=== PATIENT | male | born 1970 | race African-American/Black ===

== ENCOUNTER 2016-08-30 00:11 | Emergency (ER) | payer MEDICAID ==
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
[2016-08-30] MEDS ORDERED: Bacitracin pkt 1 gm Pkt TP ONE (00:56)
[2016-08-30] MEDS ORDERED: Bacitracin pkt 1 gm Pkt TP STA (00:57)
== END 2016-08-30 01:25 | disposition home or self-care (01) ==
LOC: ER 00:11
DX: S60.012A Contusion of left thumb without damage to nail, initial encounter (principal); R03.0 Elevated blood-pressure reading, without diagnosis of hypertension; Z88.1 Allergy status to other antibiotic agents; V87.8XXA Person injured in other specified noncollision transport accidents involving motor vehicle (traffic), initial encounter; Y93.89 Activity, other specified; Y92.488 Other paved roadways as the place of occurrence of the external cause; Y99.8 Other external cause status
CPT/HCPCS: 99283; 29125; Z7610; Z7502

== ENCOUNTER 2017-10-18 11:33 | Emergency (ER) | payer MEDICAID ==
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
[2017-10-18 12:27] LABS: % BASOPHILS 1.2 % (0.0-2.0); % EOSINOPHILS 3.7 % (0.0-5.0); % LYMPHOCYTES 38.9 % (20.0-50.0); % MONOCYTES 9.3 % (2.0-10.0); % NEUTROPHILS 46.9 % (40.0-80.0); BASOPHILE ABSOLUTE 0.1 Th/cumm (0-0.2); EOSINOPHILE ABSOLUTE 0.2 Th/cmm (0.1-0.4); HEMATOCRIT 30.3 % (41.0-60); HEMOGLOBIN 10.1 gm/dL (12-16); LYMPHOCYTE ABSOLUTE 2.6 Th/cmm (1.5-3.0); MEAN CELL VOLUME 78.4 fl (80-99); MEAN CORPUSCULAR HEMOGLOBIN 26.1 pg (26.0-30.0); MEAN CORPUSCULAR HGB CONC 33.3 pg (28.0-36.0); MEAN PLATELET VOLUME 7.8 fl; MONOCYTE ABSOLUTE 0.6 Th/cmm (0.3-1.0); NEUTROPHILE ABSOLUTE 3.1 Th/cmm (1.8-8.0); PLATELET COUNT 278 Th/cmm (150-400); RED BLOOD COUNT 3.86 Mil/cmm (4.30-5.70); RED CELL DISTRIBUTION WIDTH 15.7 % (11.5-20.0); WHITE BLOOD COUNT 6.6 Th/cmm (4.8-10.8)
[2017-10-18 12:39] LABS: URINE MICROSCOPIC INDICATED? YES; URINE SOURCE CLEAN C
[2017-10-18 12:44] LABS: ALB/GLOB RATIO 1.4 (1.0-1.8); ALBUMIN 3.7 gm/dL (4.2-5.5); ALKALINE PHOSPHATASE 98 U/L (34-104); BILIRUBIN,TOTAL 0.8 mg/dL (0.3-1.0); BUN - UREA NITROGEN 16 mg/dL (7-25); CALCIUM SERUM 8.9 mg/dL (8.6-10.3); CARBON DIOXIDE 24.6 mEq/L (21.0-31.0); CHLORIDE 107 mEq/L (98-107); GFR AFRICAN-AMERICAN > 60.0 ml/min (>90); GFR NON AFRICAN-AMERICAN > 60.0 ml/min; GLUCOSE 99 mg/dL (70-105); POTASSIUM SERUM 3.6 mEq/L (3.5-5.1); SGOT 16 U/L (13-39); SGPT/ALT 10 U/L (7-52); SODIUM SERUM 136 mEq/L (136-145); TOTAL PROTEIN,SERUM 6.4 gm/dL (6.0-8.3)
[2017-10-18 12:47] LABS: URINE BILIRUBIN NEGATIVE (NEGATIVE); URINE BLOOD SMALL (NEGATIVE); URINE GLUCOSE (UA) NEGATIVE (NEGATIVE); URINE KETONE NEGATIVE (NEGATIVE); URINE LEUKOCYTE ESTERASE NEGATIVE (NEGATIVE); URINE NITRATE NEGATIVE (NEGATIVE); URINE PROTEIN NEGATIVE (NEGATIVE); URINE UROBILINOGEN 0.2 E.U./dL (0.2 - 1.0)
[2017-10-18 12:49] LABS: URINE CLARITY TURBID (CLEAR); URINE COLOR YELLOW
[2017-10-18 13:04] LABS: URINE BACTERIA FEW /hpf (NONE SEEN); URINE EPITHELIAL CELLS OCCASIONAL /lpf (FEW); URINE RBC 0-2 /hpf (0-5); URINE WBC 0-2 /hpf (0-5)
--- NOTE | 2017-10-19 08:20 | Diagnostic Imaging Report ---
Bilateral testicular/scrotal ultrasound HISTORY: Pain, trauma The right testis measures 4.0 x 2.3 x 2.4 cm. No focal intratesticular lesions. Normal testicular vascular flow. Small right hydrocele. The left testis measures 4.3 x 2.8 x 2.5 cm. No focal parenchymal lesions. Normal testicular vascular flow. Small left hydrocele. The left epididymis appears normal. IMPRESSION: 1. Small bilateral hydroceles 2. No focal intratesticular abnormalities
== END 2017-10-18 14:20 | disposition home or self-care (01) ==
LOC: ER 11:33
DX: S39.94XA Unspecified injury of external genitals, initial encounter (principal); Z88.2 Allergy status to sulfonamides; Z88.1 Allergy status to other antibiotic agents; V19.9XXA Pedal cyclist (driver) (passenger) injured in unspecified traffic accident, initial encounter; Y93.89 Activity, other specified; Y92.89 Other specified places as the place of occurrence of the external cause; Y99.8 Other external cause status
CPT/HCPCS: 36415-UA; 76870-TC; 80053-TC; 81001-TC; 85025-TC

== ENCOUNTER 2017-10-20 22:57 | Emergency (ER) | payer MEDICAID ==
--- NOTE | 2017-10-20 23:49 | ED Physician Chart ---
ED Chief Complaint/HPI - Patient Information Date Seen:: 10/20/17 Time Seen:: 23:43 Chief Complaint:: Depression History of Present Illness:: 47 yo male had depression and bipolar disorder on Prozac 10mg qd, abilify 25mg qd for 8 months. Patient stated that there was no improvement. Patient ran out both medications for 2 days feeling depressed. Patient will be able to see his psychiatrist Dr. Roberson tomorrow morning. Patient had history of suicidal attempt. Currently, patient denies any suicidal ideation or attempt. Allergies:: Allergies Allergy/AdvReac Type Severity Reaction Status Date / Time chlorpromazine Allergy Verified 10/20/17 23:15 [From Thorazine] haloperidol [From Haldol] Allergy Verified 10/20/17 23:15 Sulfa (Sulfonamide Allergy Verified 10/20/17 23:15 Antibiotics) sulfamethoxazole Allergy Verified 08/30/16 00:32 [From Bactrim] trimethoprim [From Bactrim] Allergy Verified 08/30/16 00:32 Vitals:: Vital Signs - 8 hr 10/20/17 23:00 Temp 98.2 F HR 65 RR 18 BP 135/87 O2 Sat % 97 ED Review of Systems - Review of Systems General/Constitutional: No fever Skin: Skin lesions Head: No headache Eyes: No pain ENT: No earache Neck: No neck pain Cardio Vascular: No chest pain Pulmonary: No SOB GI: No nausea, No vomiting Musculoskeletal: No bone or joint pain Psychiatric: Depression, No suicidal ideation Neurological: No focal symptoms ED Past Medical History - Past Medical History Past Medical History: HTN Social History: Non Smoker, Alcohol, No Drug Use Psychiatricy History: Depression, Bipolar Family Medical History - Family Member Mother History Unknown: Yes Ethnicity: Non- ED Physical Exam - Physical Examination General/Constitutional: Awake Head: Atraumatic Eyes: PERRL Other Skin comments:: Multiple scars on left forearm Neck: No nuchal rigidity Respiratory: No Wheeze/Rhonchi/Rales Cardio Vascular: RRR, No murmur, gallop, rubs, NL S1 S2 GI: No tenderness/rebounding/guarding Extremities: normal strength in all extremities ED Assessment - Assessment General Assessment: Depression Bipolar disorder Assessment/Comments:: Prozac 10mg po Abilify 15mg po D/c home F/u psychiatrist [facility] ED Septic Shock - . Is Septic Shock (SBP<90, OR Lactate>4 mmol\L) present?: No - <6hrs of presentation: Vital Signs: Vital Signs - 8 hr 10/20/18 23:00 Temp 98.2 F HR 65 RR 18 BP 135/87 O2 Sat % 97 ED Reassessment (Disposition) - Reassessment Reassessment:: After sleeping overnight at ER uneventfully, patient was stable, ready to be discharged. Reassessment Condition:: Improved - Patient Disposition Discharge/Transfer:: Home
== END 2017-10-21 06:41 | disposition home or self-care (01) ==
LOC: ER 22:57
DX: F32.9 Major depressive disorder, single episode, unspecified (principal); I10 Essential (primary) hypertension; Z88.2 Allergy status to sulfonamides; Z88.1 Allergy status to other antibiotic agents; Z88.5 Allergy status to narcotic agent; Z88.8 Allergy status to other drugs, medicaments and biological substances
CPT/HCPCS: Z7502

== ENCOUNTER 2017-10-24 23:00 | Emergency (ER) | payer MEDICAID ==
--- NOTE | 2017-10-24 23:59 | ED Physician Chart ---
ED Chief Complaint/HPI - Patient Information Date Seen:: 10/24/17 Time Seen:: 23:13 Chief Complaint:: suicidal History of Present Illness:: This is a 47 yo male psych patient who states that he is suicidal and want to kill himself. He states that he is a psych patient and has not been taking his medications. He denies drug abuse and alcohol abuse. Allergies:: Allergies Allergy/AdvReac Type Severity Reaction Status Date / Time chlorpromazine Allergy Verified 10/24/17 23:10 [From Thorazine] haloperidol [From Haldol] Allergy Verified 10/24/17 23:10 Sulfa (Sulfonamide Allergy Verified 10/24/17 23:10 Antibiotics) sulfamethoxazole Allergy Verified 10/24/17 23:10 [From Bactrim] trimethoprim [From Bactrim] Allergy Verified 10/24/17 23:10 Vitals:: Vital Signs - 8 hr 10/24/17 23:05 Temp 98.1 F HR 59 RR 18 BP 130/84 O2 Sat % 97 Historian:: Patient, Medical Records Review:: Nurse's Note Reviewed, Old Chart Reviewed ED Review of Systems - Review of Systems General/Constitutional: No fever, No chills, No weight loss, No weakness, No diaphoresis, No edema, No loss of appetite Skin: No skin lesions, No rash, No bruising Head: No headache, No light-headedness Eyes: No loss of vision, No pain, No diplopia ENT: No earache, No nasal drainage, No sore throat, No tinnitus Neck: No neck pain, No swelling, No thyromegaly, No stiffness, No mass noted Cardio Vascular: No chest pain, No palpitations, No PND, No orthopnea, No edema Pulmonary: No SOB, No cough, No sputum, No wheezing GI: No nausea, No vomiting, No diarrhea, No pain, No melena, No hematochezia, No constipation, No hematemesis G/U: No dysuria, No frequency, No hematuria Musculoskeletal: No bone or joint pain, No back pain, No muscle pain Endocrine: No polyuria, No polydipsia Psychiatric: Prior psych history, Depression, No anxiety, Suicidal ideation Hematopoietic: No bruising, No lymphadenopathy Allergic/Immuno: No urticaria, No angioedema Neurological: No syncope, No focal symptoms, No weakness, No paresthesia, No headache, No seizure, No dizziness, No confusion, No vertigo ED Past Medical History - Past Medical History Obtainable: Yes Past Medical History: Other (depression and suicidal) Family History: None Social History: Non Smoker, No Alcohol, No Drug Use Surgical History: other (achalasia surgery) Family Medical History - Family Member Mother History Unknown: Yes Ethnicity: Non- ED Physical Exam - Physical Examination General/Constitutional: Awake, Well-developed, well-nourished, Alert, No distress, GCS 15, Non-toxic appearing, Ambulatory Head: Atraumatic Eyes: Lids, conjuctiva normal, PERRL, EOMI Skin: Nl inspection, No rash, No skin lesions, No ecchymosis, Well hydrated, No lymphadenopathy ENMT: External ears, nose nl, Nasal exam nl, Lips, teeth, gums nl Neck: Nontender, Full ROM w/o pain, No JVD, No nuchal rigidity, No bruit, No mass, No stridor Respiratory: Nl effort/Exclusion, Clear to Auscultation, No Wheeze/Rhonchi/Rales Cardio Vascular: RRR, No murmur, gallop, rubs, NL S1 S2 GI: No tenderness/rebounding/guarding, No organomegaly, No hernia, Normal BS's, Nondistended, No mass/bruits, No McBurney tenderness : No CVA tenderness Extremities: No tenderness or effusion, Full ROM, normal strength in all extremities, No edema, Normal digits & nails Neuro/Psych: Alert/oriented, DTR's symmetric, Normal sensory exam, Normal motor strength, Judgement/insight normal, Mood normal (suicidal), Normal gait, No focal deficits Misc: Normal back, No paraspinal tenderness ED Assessment - Assessment General Assessment: suicidal ED Septic Shock - . Is Septic Shock (SBP<90, OR Lactate>4 mmol\L) present?: No - <6hrs of presentation: Vital Signs: Vital Signs - 8 hr 10/24/17 23:05 Temp 98.1 F HR 59 RR 18 BP 130/84 O2 Sat % 97 ED Reassessment (Disposition) - Reassessment Reassessment Condition:: Unchanged - Diagnosis Diagnosis:: suicidal - Aftercare/Follow up Instructions Notes:: THE PATIENT IS AWAITING PSYCH EVALUATION IN THE AM. THE PATIENT IS CLEARED FOR PSYCH EVALUATION. THE PATIENT WILL BE CARED FOR BY DR. BEAVER STARTING AT 0700 HRS.
[2017-10-25 00:02] LABS: % BASOPHILS 0.8 % (0.0-2.0); % EOSINOPHILS 2.5 % (0.0-5.0); % LYMPHOCYTES 34.4 % (20.0-50.0); % MONOCYTES 8.7 % (2.0-10.0); % NEUTROPHILS 53.6 % (40.0-80.0); BASOPHILE ABSOLUTE 0.1 Th/cumm (0-0.2); EOSINOPHILE ABSOLUTE 0.2 Th/cmm (0.1-0.4); HEMOGLOBIN 10.9 gm/dL (12-16); LYMPHOCYTE ABSOLUTE 2.8 Th/cmm (1.5-3.0); MEAN CELL VOLUME 79.4 fl (80-99); MEAN CORPUSCULAR HEMOGLOBIN 26.2 pg (26.0-30.0); MEAN CORPUSCULAR HGB CONC 32.9 pg (28.0-36.0); MEAN PLATELET VOLUME 8.4 fl; MONOCYTE ABSOLUTE 0.7 Th/cmm (0.3-1.0); NEUTROPHILE ABSOLUTE 4.2 Th/cmm (1.8-8.0); PLATELET COUNT 329 Th/cmm (150-400); RED BLOOD COUNT 4.16 Mil/cmm (4.30-5.70); RED CELL DISTRIBUTION WIDTH 15.7 % (11.5-20.0)
[2017-10-25 00:04] LABS: URINE MICROSCOPIC INDICATED? YES; URINE SOURCE CLEAN C
[2017-10-25 00:14] LABS: ALB/GLOB RATIO 1.3 (1.0-1.8); ALBUMIN 3.9 gm/dL (4.2-5.5); ALKALINE PHOSPHATASE 114 U/L (34-104); ANION GAP 12.5 (7.0-16.0); BILIRUBIN,TOTAL 1.1 mg/dL (0.3-1.0); BUN - UREA NITROGEN 18 mg/dL (7-25); CARBON DIOXIDE 21.2 mEq/L (21.0-31.0); CHLORIDE 107 mEq/L (98-107); CREATININE - SERUM 1.1 mg/dL (0.7-1.3); GFR AFRICAN-AMERICAN > 60.0 ml/min (>90); GFR NON AFRICAN-AMERICAN > 60.0 ml/min; GLUCOSE 86 mg/dL (70-105); POTASSIUM SERUM 3.7 mEq/L (3.5-5.1); SGOT 16 U/L (13-39); SGPT/ALT 10 U/L (7-52); SODIUM SERUM 137 mEq/L (136-145); TOTAL PROTEIN,SERUM 6.9 gm/dL (6.0-8.3)
[2017-10-25 00:19] LABS: URINE BILIRUBIN NEGATIVE (NEGATIVE); URINE BLOOD SMALL (NEGATIVE); URINE GLUCOSE (UA) NEGATIVE (NEGATIVE); URINE KETONE NEGATIVE (NEGATIVE); URINE LEUKOCYTE ESTERASE NEGATIVE (NEGATIVE); URINE NITRATE NEGATIVE (NEGATIVE); URINE PROTEIN NEGATIVE (NEGATIVE)
[2017-10-25 00:21] LABS: SALICYLATES (ASPIRIN) < 25.0 mg/L (30.0-100.0)
[2017-10-25 00:22] LABS: URINE CLARITY CLEAR (CLEAR); URINE COLOR YELLOW
[2017-10-25 00:25] LABS: ACETAMINOPHEN < 10.0 ug/mL (10.0-30.0)
[2017-10-25 00:31] LABS: URINE BACTERIA FEW /hpf (NONE SEEN); URINE EPITHELIAL CELLS NONE SEEN /lpf (FEW); URINE RBC NONE SEEN /hpf (0-5); URINE WBC 0-2 /hpf (0-5)
[2017-10-25 00:36] LABS: AMPHETAMINE URINE NEGATIVE (NEGATIVE); BARBITURATES URINE NEGATIVE (NEGATIVE); BENZODIAZEPINES QUAL URINE NEGATIVE (NEGATIVE); CANNABINOID THC NEGATIVE (NEGATIVE); COCAINE METABOLITE QUAL URINE NEGATIVE (NEGATIVE); METHADONE URINE NEGATIVE (NEGATIVE); METHAMPHETAMINES QUAL URINE NEGATIVE (NEGATIVE); OPIATES (MORPHINE) QUAL. URINE NEGATIVE (NEGATIVE); PHENCYCLIDINE (PCP) URINE NEGATIVE (NEGATIVE); TRICYCLICS (TCA) QUAL. URINE NEGATIVE (NEGATIVE)
== END 2017-10-25 08:32 | disposition home or self-care (01) ==
LOC: ER 23:00
DX: F32.9 Major depressive disorder, single episode, unspecified (principal); R45.851 Suicidal ideations; Z88.5 Allergy status to narcotic agent; Z88.2 Allergy status to sulfonamides; Z88.8 Allergy status to other drugs, medicaments and biological substances
CPT/HCPCS: 36415-UA; 80053-TC; 80307; 80320-TC; 80329-TC; 81001-TC; 81003-TC; 85025-TC; Z7502

== ENCOUNTER 2017-10-27 00:38 | Emergency (ER) | payer MEDICAID ==
--- NOTE | 2017-10-27 03:58 | ED Physician Chart ---
ED Chief Complaint/HPI - Patient Information Date Seen:: 10/27/17 Time Seen:: 03:53 Chief Complaint:: psychosis History of Present Illness:: pt here for psych estefania Allergies:: Allergies Allergy/AdvReac Type Severity Reaction Status Date / Time chlorpromazine Allergy Verified 10/27/17 00:55 [From Thorazine] haloperidol [From Haldol] Allergy Verified 10/27/17 00:55 Sulfa (Sulfonamide Allergy Verified 10/27/17 00:55 Antibiotics) sulfamethoxazole Allergy Verified 10/27/17 00:55 [From Bactrim] trimethoprim [From Bactrim] Allergy Verified 10/27/17 00:55 Vitals:: Vital Signs - 8 hr 10/27/17 00:50 Temp 97 F HR 82 RR 18 BP 140/91 O2 Sat % 98 Family Medical History - Family Member Mother History Unknown: Yes Ethnicity: Non- ED Septic Shock - . Is Septic Shock (SBP<90, OR Lactate>4 mmol\L) present?: No - <6hrs of presentation: Vital Signs: Vital Signs - 8 hr 10/27/17 00:50 Temp 97 F HR 82 RR 18 BP 140/91 O2 Sat % 98 ED Reassessment (Disposition) - Reassessment Reassessment Condition:: Improved - Diagnosis Diagnosis:: abd pain leukocytosis - Aftercare/Follow up Instructions Aftercare/Follow-Up Instructions:: Counseled pt regarding lab results/diagnosis & need follow up - Patient Disposition Discharge/Transfer:: Acute Care w/in this hosp Transport Method:: ACLS Admitted to:: Med/Surg
== END 2017-10-27 10:05 | disposition left against medical advice (07) ==
LOC: ER 00:38
DX: F29 Unspecified psychosis not due to a substance or known physiological condition (principal); D72.829 Elevated white blood cell count, unspecified; R10.9 Unspecified abdominal pain; Z88.2 Allergy status to sulfonamides; Z88.1 Allergy status to other antibiotic agents; Z88.5 Allergy status to narcotic agent
CPT/HCPCS: Z7502

== ENCOUNTER 2017-11-08 23:03 | Emergency (ER) | payer MEDICAID ==
--- NOTE | 2017-11-08 23:24 | ED Physician Chart ---
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 hx of argument with girl friend and came with emotional distress not suicidal not wanting to hurt himself or others Allergies:: Allergies Allergy/AdvReac Type Severity Reaction Status Date / Time chlorpromazine Allergy Verified 11/08/17 23:15 [From Thorazine] haloperidol [From Haldol] Allergy Verified 11/08/17 23:15 Sulfa (Sulfonamide Allergy Verified 11/08/17 23:15 Antibiotics) sulfamethoxazole Allergy Verified 11/08/17 23:15 [From Bactrim] trimethoprim [From Bactrim] Allergy Verified 11/08/17 23:15 ED Review of Systems - Review of Systems General/Constitutional: No fever, No chills, No weight loss, No weakness, No diaphoresis, No edema, No loss of appetite Skin: No skin lesions, No rash, No bruising Head: No headache, No light-headedness Eyes: No loss of vision, No pain, No diplopia ENT: No earache, No nasal drainage, No sore throat, No tinnitus Neck: No neck pain, No swelling, No thyromegaly, No stiffness, No mass noted Cardio Vascular: No chest pain, No palpitations, No PND, No orthopnea, No edema Pulmonary: No SOB, No cough, No sputum, No wheezing GI: No nausea, No vomiting, No diarrhea, No pain, No melena, No hematochezia, No constipation, No hematemesis G/U: No dysuria, No frequency, No hematuria Musculoskeletal: No bone or joint pain, No back pain, No muscle pain Endocrine: No polyuria, No polydipsia Psychiatric: No prior psych history, No depression, No anxiety, No suicidal ideation Hematopoietic: No bruising, No lymphadenopathy Allergic/Immuno: No urticaria, No angioedema Neurological: No syncope, No focal symptoms, No weakness, No paresthesia, No headache, No seizure, No dizziness, No confusion, No vertigo ED Past Medical History - Past Medical History Past Medical History: Other (psych disorder) Family Medical History - Family Member Mother History Unknown: Yes Ethnicity: Non- ED Physical Exam - Physical Examination General/Constitutional: Well-developed, well-nourished, Alert ED Septic Shock - . Is Septic Shock (SBP<90, OR Lactate>4 mmol\L) present?: No ED Reassessment (Disposition) - Reassessment Reassessment:: anxiety emotional distress - Diagnosis Diagnosis:: emotional distress - Patient Disposition Discharge/Transfer:: Home Condition at Disposition:: Stable
== END 2017-11-09 09:00 | disposition left against medical advice (07) ==
LOC: ER 23:03
DX: F41.9 Anxiety disorder, unspecified (principal); R45.7 State of emotional shock and stress, unspecified; Z88.2 Allergy status to sulfonamides; Z88.5 Allergy status to narcotic agent; Z88.8 Allergy status to other drugs, medicaments and biological substances
CPT/HCPCS: Z7502

== ENCOUNTER 2017-12-03 23:21 | Emergency (ER) | payer MEDICAID ==
--- NOTE | 2017-12-04 00:02 | ED Physician Chart ---
ED Chief Complaint/HPI - Patient Information Date Seen:: 12/03/17 Time Seen:: 23:40 Chief Complaint:: depression History of Present Illness:: Patient's been depressed for 2 days since he ran out of Prozac. He was taking 20 mg twice a day. He has been thinking of cutting himself. He called his psychiatrist's office who will see him tomorrow morning. The psychiatrist's office told him to spend the night in an emergency room and go to the office first thing in the morning. If he spends the night in the emergency room he no longer wants to cut himself. Allergies:: Allergies Allergy/AdvReac Type Severity Reaction Status Date / Time chlorpromazine Allergy Verified 11/08/17 23:15 [From Thorazine] haloperidol [From Haldol] Allergy Verified 11/08/17 23:15 Sulfa (Sulfonamide Allergy Verified 11/08/17 23:15 Antibiotics) sulfamethoxazole Allergy Verified 11/08/17 23:15 [From Bactrim] trimethoprim [From Bactrim] Allergy Verified 11/08/17 23:15 Vitals:: Vital Signs - 8 hr 12/03/17 23:34 Temp 97.5 F HR 66 RR 16 BP 151/95 O2 Sat % 98 Historian:: Patient Review:: Nurse's Note Reviewed ED Review of Systems - Review of Systems General/Constitutional: No fever, No chills Skin: No skin lesions Head: No headache Eyes: No loss of vision ENT: No earache Neck: No neck pain, No swelling Cardio Vascular: No chest pain, No palpitations Pulmonary: No SOB GI: No nausea, No vomiting, No diarrhea G/U: No dysuria, Hematuria Musculoskeletal: No bone or joint pain Psychiatric: Depression Hematopoietic: No bruising Allergic/Immuno: No urticaria Neurological: No syncope Family Medical History - Family Member Mother History Unknown: Yes Ethnicity: Non- ED Physical Exam - Physical Examination General/Constitutional: Awake, Well-developed, well-nourished, Alert, No distress, GCS 15, Non-toxic appearing, Ambulatory Head: Atraumatic Eyes: Lids, conjuctiva normal, PERRL, EOMI Other Skin comments:: Scars noted left forearm left wrist and left hand ENMT: External ears, nose nl, Nasal exam nl, Lips, teeth, gums nl Neck: Nontender, Full ROM w/o pain, No JVD, No nuchal rigidity, No bruit, No mass, No stridor Respiratory: Nl effort/Exclusion, Clear to Auscultation, No Wheeze/Rhonchi/Rales Cardio Vascular: RRR, No murmur, gallop, rubs, NL S1 S2 GI: No tenderness/rebounding/guarding, No organomegaly, No hernia, Normal BS's, Nondistended, No mass/bruits, No McBurney tenderness : No CVA tenderness Extremities: No tenderness or effusion, Full ROM, normal strength in all extremities, No edema, Normal digits & nails Neuro/Psych: Alert/oriented, DTR's symmetric, Normal sensory exam, Normal motor strength, Judgement/insight normal, Mood normal, Normal gait, No focal deficits Misc: Normal back, No paraspinal tenderness ED Septic Shock - . Is Septic Shock (SBP<90, OR Lactate>4 mmol\L) present?: No - <6hrs of presentation: Vital Signs: Vital Signs - 8 hr 12/03/17 23:34 Temp 97.5 F HR 66 RR 16 BP 151/95 O2 Sat % 98 ED Reassessment (Disposition) - Reassessment Reassessment Condition:: Improved - Diagnosis Diagnosis:: Depression - Aftercare/Follow up Instructions Aftercare/Follow-Up Instructions:: Refer to Discharge Instructions - Patient Disposition Discharge/Transfer:: Home Condition at Disposition:: Stable, Improved
== END 2017-12-04 06:40 | disposition home or self-care (01) ==
LOC: ER 23:21
DX: F32.9 Major depressive disorder, single episode, unspecified (principal); Z88.5 Allergy status to narcotic agent; Z88.1 Allergy status to other antibiotic agents; Z88.2 Allergy status to sulfonamides; Z88.8 Allergy status to other drugs, medicaments and biological substances
CPT/HCPCS: Z7502

== ENCOUNTER 2017-12-15 05:59 | Emergency (ER) | payer MEDICAID ==
[2017-12-15] MEDS ORDERED: Lactated Ringer 1,000 ML IV ONE (06:35)
[2017-12-15 07:02] LABS: % BASOPHILS 1.8 % (0.0-2.0); % EOSINOPHILS 5.3 % (0.0-5.0); % LYMPHOCYTES 35.1 % (20.0-50.0); % NEUTROPHILS 48.8 % (40.0-80.0); BASOPHILE ABSOLUTE 0.1 Th/cumm (0-0.2); EOSINOPHILE ABSOLUTE 0.4 Th/cmm (0.1-0.4); HEMATOCRIT 30.2 % (41.0-60); HEMOGLOBIN 9.9 gm/dL (12-16); LYMPHOCYTE ABSOLUTE 2.5 Th/cmm (1.5-3.0); MEAN CELL VOLUME 78.6 fl (80-99); MEAN CORPUSCULAR HEMOGLOBIN 25.9 pg (26.0-30.0); MEAN CORPUSCULAR HGB CONC 32.9 pg (28.0-36.0); MEAN PLATELET VOLUME 8.3 fl; MONOCYTE ABSOLUTE 0.6 Th/cmm (0.3-1.0); NEUTROPHILE ABSOLUTE 3.5 Th/cmm (1.8-8.0); PLATELET COUNT 320 Th/cmm (150-400); RED BLOOD COUNT 3.84 Mil/cmm (4.30-5.70); RED CELL DISTRIBUTION WIDTH 15.6 % (11.5-20.0); WHITE BLOOD COUNT 7.1 Th/cmm (4.8-10.8)
--- NOTE | 2017-12-15 07:12 | ED Physician Chart ---
ED Chief Complaint/HPI - Patient Information Date Seen:: 12/15/17 Time Seen:: 06:00 Chief Complaint:: inability to eat or drink History of Present Illness:: inability to eat or drink in a patient with achalasia who gets dilated for an esophageal stricture. States that he needs IV fluids. Allergies:: Allergies Allergy/AdvReac Type Severity Reaction Status Date / Time chlorpromazine Allergy Verified 12/15/17 06:02 [From Thorazine] haloperidol [From Haldol] Allergy Verified 12/15/17 06:02 Sulfa (Sulfonamide Allergy Verified 12/15/17 06:02 Antibiotics) sulfamethoxazole Allergy Verified 12/15/17 06:02 [From Bactrim] trimethoprim [From Bactrim] Allergy Verified 12/15/17 06:02 Vitals:: Vital Signs - 8 hr 12/15/17 06:00 Temp 97.4 F HR 67 RR 18 BP 131/92 O2 Sat % 97 Historian:: Patient Review:: Nurse's Note Reviewed ED Review of Systems - Review of Systems General/Constitutional: No fever, No chills, No weight loss, No weakness, No diaphoresis, No edema, No loss of appetite Skin: No skin lesions, No rash, No bruising Head: No headache, No light-headedness Eyes: No loss of vision, No pain, No diplopia ENT: No earache, No nasal drainage, No sore throat, No tinnitus Neck: No neck pain, No swelling, No thyromegaly, No stiffness, No mass noted Cardio Vascular: No chest pain, No palpitations, No PND, No orthopnea, No edema Pulmonary: No SOB, No cough, No sputum, No wheezing GI: Nausea, Vomiting G/U: No dysuria, No frequency, No hematuria Musculoskeletal: No bone or joint pain, No back pain, No muscle pain Endocrine: No polyuria, No polydipsia Psychiatric: Prior psych history, No depression, No anxiety, No suicidal ideation Hematopoietic: No bruising, No lymphadenopathy Allergic/Immuno: No urticaria, No angioedema Neurological: No syncope, No focal symptoms, No weakness, No paresthesia, No headache, No seizure, No dizziness, No confusion, No vertigo ED Past Medical History - Past Medical History Obtainable: Yes Psychiatricy History: None Family Medical History - Family Member Mother History Unknown: Yes Ethnicity: Non- ED Physical Exam - Physical Examination General/Constitutional: Awake, Well-developed, well-nourished, Alert, No distress, GCS 15, Non-toxic appearing, Ambulatory Head: Atraumatic Eyes: Lids, conjuctiva normal, PERRL, EOMI Other Skin comments:: Deep left forearm wound with scab on it. 2 (recent) more superficial cuts distal present to that. No s/s of infection. ENMT: External ears, nose nl Other ENMT comments:: Oral mucosa dry. Neck: Nontender, Full ROM w/o pain, No nuchal rigidity, No mass, No stridor Respiratory: Nl effort/Exclusion, Clear to Auscultation, No Wheeze/Rhonchi/Rales Cardio Vascular: RRR, No murmur, gallop, rubs, NL S1 S2 GI: No tenderness/rebounding/guarding, No organomegaly, No hernia, Normal BS's, Nondistended, No mass/bruits, No McBurney tenderness : No CVA tenderness Other Extremities comments:: Deep left forearm wound with scab on it. 2 (recent) more superficial cuts distal present to that. No s/s of infection. Neuro/Psych: Alert/oriented ED Assessment - Assessment General Assessment: sign out given to Dr. Zapata at 7:00 a.m.to check labs and evaluate possible need for admit. ED Septic Shock - . Is Septic Shock (SBP<90, OR Lactate>4 mmol\L) present?: No - <6hrs of presentation: Vital Signs: Vital Signs - 8 hr 12/15/17 06:00 Temp 97.4 F HR 67 RR 18 BP 131/92 O2 Sat % 97 ED Reassessment (Disposition) - Reassessment Reassessment Condition:: Unchanged - Diagnosis Diagnosis:: Inability to eat or drink - Patient Disposition Condition at Disposition:: Stable, Unchanged
[2017-12-15 07:40] LABS: ALB/GLOB RATIO 1.3 (1.0-1.8); ALBUMIN 3.7 gm/dL (4.2-5.5); ALKALINE PHOSPHATASE 99 U/L (34-104); AMYLASE SERUM 50 U/L (29-103); ANION GAP 8.3 (7.0-16.0); BILIRUBIN,TOTAL 0.9 mg/dL (0.3-1.0); BUN - UREA NITROGEN 15 mg/dL (7-25); CALCIUM SERUM 8.8 mg/dL (8.6-10.3); CARBON DIOXIDE 26.1 mEq/L (21.0-31.0); CHLORIDE 107 mEq/L (98-107); GFR AFRICAN-AMERICAN > 60.0 ml/min (>90); GFR NON AFRICAN-AMERICAN > 60.0 ml/min; GLUCOSE 95 mg/dL (70-105); LIPASE 67 U/L (11-82); MAGNESIUM 2.1 mg/dL (1.9-2.7); PHOSPHOROUS 3.6 mg/dL (2.5-5.0); POTASSIUM SERUM 3.4 mEq/L (3.5-5.1); SGOT 16 U/L (13-39); SGPT/ALT 12 U/L (7-52); SODIUM SERUM 138 mEq/L (136-145); TOTAL PROTEIN,SERUM 6.5 gm/dL (6.0-8.3)
[2017-12-15] MEDS ORDERED: Potassium Chloride 20 mEq ER Tab PO ONE (08:26)
[2017-12-15 08:29] LABS: URINE SOURCE CLEAN C
[2017-12-15 08:31] LABS: URINE BILIRUBIN NEGATIVE (NEGATIVE); URINE BLOOD NEGATIVE (NEGATIVE); URINE GLUCOSE (UA) NEGATIVE (NEGATIVE); URINE KETONE NEGATIVE (NEGATIVE); URINE LEUKOCYTE ESTERASE NEGATIVE (NEGATIVE); URINE NITRATE NEGATIVE (NEGATIVE); URINE PH 7.5 (4.6 - 8.0); URINE PROTEIN NEGATIVE (NEGATIVE); URINE UROBILINOGEN 0.2 E.U./dL (0.2 - 1.0)
[2017-12-15 08:40] LABS: AMPHETAMINE URINE NEGATIVE (NEGATIVE); BARBITURATES URINE NEGATIVE (NEGATIVE); BENZODIAZEPINES QUAL URINE NEGATIVE (NEGATIVE); CANNABINOID THC NEGATIVE (NEGATIVE); COCAINE METABOLITE QUAL URINE NEGATIVE (NEGATIVE); METHADONE URINE NEGATIVE (NEGATIVE); METHAMPHETAMINES QUAL URINE NEGATIVE (NEGATIVE); OPIATES (MORPHINE) QUAL. URINE NEGATIVE (NEGATIVE); PHENCYCLIDINE (PCP) URINE NEGATIVE (NEGATIVE); TRICYCLICS (TCA) QUAL. URINE NEGATIVE (NEGATIVE)
[2017-12-15 08:58] LABS: URINE CLARITY CLEAR (CLEAR); URINE COLOR YELLOW; URINE MICROSCOPIC INDICATED? NO
== END 2017-12-15 09:45 | disposition left against medical advice (07) ==
LOC: ER 05:59
DX: R63.8 Other symptoms and signs concerning food and fluid intake (principal); F32.9 Major depressive disorder, single episode, unspecified; S51.802A Unspecified open wound of left forearm, initial encounter; Z88.1 Allergy status to other antibiotic agents; Z88.2 Allergy status to sulfonamides; Z88.5 Allergy status to narcotic agent; W26.8XXA Contact with other sharp object(s), not elsewhere classified, initial encounter; Y93.89 Activity, other specified; Y92.89 Other specified places as the place of occurrence of the external cause; Y99.8 Other external cause status
CPT/HCPCS: 36415-UA; 80053-TC; 80307; 81003-TC; 82150-TC; 83690-TC; 83735-TC; 84100-TC; 85025-TC; Z7502

== ENCOUNTER 2017-12-16 11:00 | Emergency (ER) | payer MEDICAID ==
[2017-12-16 11:26] LABS: % BASOPHILS 0.9 % (0.0-2.0); % EOSINOPHILS 3.9 % (0.0-5.0); % LYMPHOCYTES 31.3 % (20.0-50.0); % NEUTROPHILS 55.9 % (40.0-80.0); BASOPHILE ABSOLUTE 0.1 Th/cumm (0-0.2); EOSINOPHILE ABSOLUTE 0.3 Th/cmm (0.1-0.4); HEMATOCRIT 32.5 % (41.0-60); HEMOGLOBIN 10.6 gm/dL (12-16); LYMPHOCYTE ABSOLUTE 2.5 Th/cmm (1.5-3.0); MEAN CELL VOLUME 78.7 fl (80-99); MEAN CORPUSCULAR HEMOGLOBIN 25.7 pg (26.0-30.0); MEAN CORPUSCULAR HGB CONC 32.7 pg (28.0-36.0); MEAN PLATELET VOLUME 8.1 fl; MONOCYTE ABSOLUTE 0.6 Th/cmm (0.3-1.0); NEUTROPHILE ABSOLUTE 4.6 Th/cmm (1.8-8.0); PLATELET COUNT 341 Th/cmm (150-400); RED BLOOD COUNT 4.13 Mil/cmm (4.30-5.70); RED CELL DISTRIBUTION WIDTH 15.3 % (11.5-20.0); WHITE BLOOD COUNT 8.1 Th/cmm (4.8-10.8)
[2017-12-16 11:49] LABS: AMYLASE SERUM 52 U/L (29-103); ANION GAP 9.7 (7.0-16.0); BUN - UREA NITROGEN 17 mg/dL (7-25); CALCIUM SERUM 9.1 mg/dL (8.6-10.3); CARBON DIOXIDE 25.8 mEq/L (21.0-31.0); CHLORIDE 103 mEq/L (98-107); CREATININE - SERUM 1.1 mg/dL (0.7-1.3); GFR AFRICAN-AMERICAN > 60.0 ml/min (>90); GFR NON AFRICAN-AMERICAN > 60.0 ml/min; GLUCOSE 68 mg/dL (70-105); LIPASE 81 U/L (11-82); POTASSIUM SERUM 3.5 mEq/L (3.5-5.1); SODIUM SERUM 135 mEq/L (136-145)
[2017-12-16] MEDS: Sodium Chloride 0.9% 1,000 ML IV ONE (12:27)
--- NOTE | 2017-12-16 12:39 | Diagnostic Imaging Report ---
Testicular/scrotal ultrasound HISTORY: Pain, trauma The right testis measures 3.9 x 2.2 x 2.6 cm. No focal parenchymal lesions. Normal testicular vascular flow. Small hydrocele on the right side. The right epididymis appears normal. The left testis measures 3.8 x 1.9 x 2.9 cm. No focal intratesticular abnormalities. Normal testicular vascular flow. Small left hydrocele. IMPRESSION: 1. Small bilateral hydroceles 2. No focal intratesticular abnormalities
--- NOTE | 2017-12-16 14:13 | ED Physician Chart ---
ED Chief Complaint/HPI - Patient Information Date Seen:: 12/16/17 Time Seen:: 11:00 Chief Complaint:: Abdominal Pain History of Present Illness:: onset x one hour LAY BROTHER of intermittent, crampy, price-umbilical abdominal pain, N/V /D x 2 which resolved upon ER arrival; pt also admits to a scrotal bruise after an accidental blunt contact trauma last night to pt's scrotum with MS type scrotal pain which resolved upon ER arrival; pt denies LOC, ALOC, AMS, decreased activity, visual or gait changes, weakness, dizziness, paresthesias, vertigo, H/As, S/T, neck pain, cough, C/P, SOB, A/C, fever, chills, bleeding, or urinary s/s; pt is eating and is urinating well; pt last urinated 1/2 hour LAY BROTHER; pt's last tetanus shot: , 5 years; UTD Allergies:: Allergies Allergy/AdvReac Type Severity Reaction Status Date / Time chlorpromazine Allergy Verified 12/16/17 11:09 [From Thorazine] haloperidol [From Haldol] Allergy Verified 12/16/17 11:09 Sulfa (Sulfonamide Allergy Verified 12/16/17 11:09 Antibiotics) sulfamethoxazole Allergy Verified 12/16/17 11:09 [From Bactrim] trimethoprim [From Bactrim] Allergy Verified 12/16/17 11:09 Vitals:: Vital Signs - 8 hr 12/16/17 11:04 Temp 97.3 F HR 71 RR 16 BP 140/83 O2 Sat % 98 Historian:: Patient Review:: Nurse's Note Reviewed ED Review of Systems - Review of Systems General/Constitutional: No fever, No chills, No weight loss, No weakness, No diaphoresis, No edema, No loss of appetite Skin: No skin lesions, No rash, No bruising Head: No headache, No light-headedness Eyes: No loss of vision, No pain, No diplopia ENT: No earache, No nasal drainage, No sore throat, No tinnitus Neck: No neck pain, No swelling, No thyromegaly, No stiffness, No mass noted Cardio Vascular: No chest pain, No palpitations, No PND, No orthopnea, No edema Pulmonary: No SOB, No cough, No sputum, No wheezing GI: Nausea, Vomiting, Diarrhea, Pain, No melena, No hematochezia, No constipation, No hematemesis G/U: No dysuria, No frequency, No hematuria, No nacturia Musculoskeletal: No bone or joint pain, No back pain, Muscle pain Endocrine: No polyuria, No polydipsia Psychiatric: No prior psych history, No depression, Anxiety, No suicidal ideation, No homicidal ideation, No auditory hallucination, No visual hallucination Hematopoietic: No bruising, No lymphadenopathy Allergic/Immuno: No urticaria, No angioedema Neurological: No syncope, No focal symptoms, No weakness, No paresthesia, No headache, No seizure, No dizziness, No confusion, No vertigo ED Past Medical History - Past Medical History Obtainable: Yes Past Medical History: PUD/GERD, Other (Achalasia) Family History: HTN Social History: Non Smoker, No Alcohol, No Drug Use, Single Surgical History: None Psychiatricy History: None Medication: Reviewed Family Medical History - Family Member Mother History Unknown: Yes Ethnicity: Non- ED Physical Exam - Physical Examination General/Constitutional: Awake, Well-developed, well-nourished, Alert, No distress, GCS 15, Non-toxic appearing, Ambulatory Head: Atraumatic Eyes: Lids, conjuctiva normal, PERRL, EOMI Skin: Nl inspection, No rash, No skin lesions, No ecchymosis, Well hydrated, No lymphadenopathy ENMT: External ears, nose nl, TM canals nl, Nasal exam nl, Lips, teeth, gums nl , Oropharynx nl, Tonsils nl Neck: Nontender, Full ROM w/o pain, No JVD, No nuchal rigidity, No bruit, No mass, No stridor Other Neck comments:: supple; no meningeal signs; no cervical tenderness; no bruits Respiratory: Nl effort/Exclusion, Clear to Auscultation, No Wheeze/Rhonchi/Rales Cardio Vascular: RRR, No murmur, gallop, rubs, NL S1 S2, Carotid/Femoral/Distal pulses equal bilaterally GI: No tenderness/rebounding/guarding, No organomegaly, No hernia, Normal BS's, Nondistended, No mass/bruits, No McBurney tenderness, Rectum exam nl Other GI comments:: no pulsatile masses : No CVA tenderness, NL external genitalia, No discharge Other comments:: + small hydroceles and small scrotal contusion Extremities: No tenderness or effusion, Full ROM, normal strength in all extremities, No edema, Normal digits & nails Neuro/Psych: Alert/oriented, DTR's symmetric, Normal sensory exam, Normal motor strength, Judgement/insight normal, Mood normal, Normal gait, No focal deficits Other Neuro/Psych comments:: no focal signs Misc: Normal back, No paraspinal tenderness ED Labs/Radiology/EKG Results - Lab Results Results: Laboratory Tests 12/16/17 12/16/17 11:20 11:20 WBC 8.1 RBC 4.13 L Hgb 10.6 L Hct 32.5 L MCV 78.7 L MCH 25.7 L MCHC Differential 32.7 RDW 15.3 Plt Count 341 MPV 8.1 Neutrophils % 55.9 Lymphocytes % 31.3 Monocytes % 8.0 Eosinophils % 3.9 Basophils % 0.9 Sodium 135 L Potassium 3.5 Chloride 103 Carbon Dioxide 25.8 Anion Gap 9.7 BUN 17 Creatinine 1.1 Est GFR ( Amer) > 60.0 Est GFR (Non-Af Amer) > 60.0 BUN/Creatinine Ratio 15.5 Glucose 68 L Calcium 9.1 Amylase 52 Lipase 81 Comments:: Reviewed - Radiology Results Comments:: + Small Bilateral Hydroceles; no focal intratesticular abnormalities ED Septic Shock - . Is Septic Shock (SBP<90, OR Lactate>4 mmol\L) present?: No - <6hrs of presentation: Vital Signs: Vital Signs - 8 hr 12/16/17 11:04 Temp 97.3 F HR 71 RR 16 BP 140/83 O2 Sat % 98 ED Reassessment (Disposition) - Reassessment Reassessment:: pt tolerated po fluids well in ER; pt is asymptomatic upon discharge Reassessment Condition:: Improved - Diagnosis Diagnosis:: Dx: Abdominal Pain-resolved; N/V/D; AGE; Gastritis; GERD; Achalasia; Scrotal Contusion; Scrotal Hydroceles; Scrotal Pain; Gastroenteritis; Scrotal Trauma; Viral Syndrome; Anxiety Reaction - Aftercare/Follow up Instructions Aftercare/Follow-Up Instructions:: Counseled pt regarding lab results/diagnosis & need follow up, Refer to Discharge Instructions, Counseled pt & family regarding lab results/diagnosis & need follow up Medication Prescribed:: Clear Liquids; Encourage Fluids - Patient Disposition Discharge/Transfer:: Home Condition at Disposition:: Stable, Improved (RTER prn if existing s/s reoccur and/or get worse and/or any other new s/s occur; ACIs given for all above Dx; Refer to GI/ Specialists/Urologist/Psychiatrist/Clinical Informatics Manager [facility]; F/U with PMD in one day or prn; RTER prn if concerned)
== END 2017-12-16 14:23 | disposition home or self-care (01) ==
LOC: ER 11:00
DX: K21.9 Gastro-esophageal reflux disease without esophagitis (principal); K52.9 Noninfective gastroenteritis and colitis, unspecified; S30.22XA Contusion of scrotum and testes, initial encounter; N43.3 Hydrocele, unspecified; K22.0 Achalasia of cardia; F41.1 Generalized anxiety disorder; B34.9 Viral infection, unspecified; Z88.5 Allergy status to narcotic agent; Z88.2 Allergy status to sulfonamides; Z88.1 Allergy status to other antibiotic agents; X58.XXXA Exposure to other specified factors, initial encounter; Y93.89 Activity, other specified; Y92.89 Other specified places as the place of occurrence of the external cause; Y99.8 Other external cause status
CPT/HCPCS: 36415-UA; 76870-TC; 80048-TC; 82150-TC; 83690-TC; 85025-TC

== ENCOUNTER 2018-01-17 23:53 | Emergency (ER) | payer MEDICAID ==
[2018-01-18] MEDS ORDERED: Sodium Chloride 0.9% 1,000 ML IV ONE ×2 (00:19)
--- NOTE | 2018-01-18 00:25 | ED Physician Chart ---
ED Chief Complaint/HPI - Patient Information Date Seen:: 01/18/18 Time Seen:: 00:21 Chief Complaint:: vomiting History of Present Illness:: 47 yr old male with achalasia with vomiting can not keep anything down Allergies:: Allergies Allergy/AdvReac Type Severity Reaction Status Date / Time chlorpromazine Allergy Verified 01/17/18 23:57 [From Thorazine] haloperidol [From Haldol] Allergy Verified 01/17/18 23:57 Sulfa (Sulfonamide Allergy Verified 01/17/18 23:57 Antibiotics) sulfamethoxazole Allergy Verified 01/17/18 23:57 [From Bactrim] trimethoprim [From Bactrim] Allergy Verified 01/17/18 23:57 ED Review of Systems - Review of Systems General/Constitutional: No fever Skin: No skin lesions Head: No headache Eyes: No loss of vision ENT: No earache Neck: No neck pain Cardio Vascular: No chest pain Pulmonary: No SOB GI: Nausea, Vomiting G/U: No dysuria Musculoskeletal: No bone or joint pain Endocrine: No polyuria Psychiatric: No depression Hematopoietic: No bruising Allergic/Immuno: No urticaria Neurological: No syncope Family Medical History - Family Member Mother History Unknown: Yes Ethnicity: Non- ED Septic Shock - . Is Septic Shock (SBP<90, OR Lactate>4 mmol\L) present?: No ED Reassessment (Disposition) - Reassessment Reassessment Condition:: Improved - Diagnosis Diagnosis:: achalasia of esophagus with vomiting - Patient Disposition Discharge/Transfer:: Home Condition at Disposition:: Stable
[2018-01-18 00:42] LABS: % BASOPHILS 1.1 % (0.0-2.0); % LYMPHOCYTES 35.9 % (20.0-50.0); % MONOCYTES 10.6 % (2.0-10.0); % NEUTROPHILS 50.4 % (40.0-80.0); BASOPHILE ABSOLUTE 0.1 Th/cumm (0-0.2); EOSINOPHILE ABSOLUTE 0.1 Th/cmm (0.1-0.4); HEMATOCRIT 31.6 % (41.0-60); HEMOGLOBIN 10.3 gm/dL (12-16); LYMPHOCYTE ABSOLUTE 2.5 Th/cmm (1.5-3.0); MEAN CELL VOLUME 80.9 fl (80-99); MEAN CORPUSCULAR HEMOGLOBIN 26.3 pg (26.0-30.0); MEAN CORPUSCULAR HGB CONC 32.5 pg (28.0-36.0); MEAN PLATELET VOLUME 8.3 fl; MONOCYTE ABSOLUTE 0.7 Th/cmm (0.3-1.0); NEUTROPHILE ABSOLUTE 3.6 Th/cmm (1.8-8.0); PLATELET COUNT 268 Th/cmm (150-400); RED BLOOD COUNT 3.91 Mil/cmm (4.30-5.70); RED CELL DISTRIBUTION WIDTH 18.8 % (11.5-20.0)
[2018-01-18 01:01] LABS: ALB/GLOB RATIO 1.3 (1.0-1.8); ALBUMIN 3.5 gm/dL (4.2-5.5); ALKALINE PHOSPHATASE 90 U/L (34-104); ANION GAP 9.9 (7.0-16.0); BILIRUBIN,TOTAL 0.7 mg/dL (0.3-1.0); BUN - UREA NITROGEN 16 mg/dL (7-25); CALCIUM SERUM 8.4 mg/dL (8.6-10.3); CARBON DIOXIDE 24.6 mEq/L (21.0-31.0); CHLORIDE 109 mEq/L (98-107); CREATININE - SERUM 1.1 mg/dL (0.7-1.3); GFR AFRICAN-AMERICAN > 60.0 ml/min (>90); GFR NON AFRICAN-AMERICAN > 60.0 ml/min; GLUCOSE 124 mg/dL (70-105); POTASSIUM SERUM 3.5 mEq/L (3.5-5.1); SGOT 15 U/L (13-39); SGPT/ALT 13 U/L (7-52); SODIUM SERUM 140 mEq/L (136-145); TOTAL PROTEIN,SERUM 6.2 gm/dL (6.0-8.3)
== END 2018-01-18 01:45 | disposition home or self-care (01) ==
LOC: ER 23:53
DX: K22.0 Achalasia of cardia (principal); R11.2 Nausea with vomiting, unspecified; Z88.1 Allergy status to other antibiotic agents; Z88.2 Allergy status to sulfonamides; Z88.5 Allergy status to narcotic agent; Z88.8 Allergy status to other drugs, medicaments and biological substances
CPT/HCPCS: 99284; 36415; 85025; 80053; Q0162; J7030; Z7502

== ENCOUNTER 2018-03-05 19:34 | Inpatient (IN) | payer MEDICAID ==
--- NOTE | 2018-03-05 19:54 | ED Physician Chart ---
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 VOMITING DIZZINESS HX OF ACALASIA OF ESOPHAGUS AND PSYCH ISSUES HAS PROBLEMS VOLITIONAL SXS Allergies:: Allergies Allergy/AdvReac Type Severity Reaction Status Date / Time chlorpromazine Allergy Verified 01/17/18 23:57 [From Thorazine] haloperidol [From Haldol] Allergy Verified 01/17/18 23:57 Sulfa (Sulfonamide Allergy Verified 01/17/18 23:57 Antibiotics) sulfamethoxazole Allergy Verified 01/17/18 23:57 [From Bactrim] trimethoprim [From Bactrim] Allergy Verified 01/17/18 23:57 ED Review of Systems - Review of Systems General/Constitutional: No fever, No chills, No weight loss, No weakness, No diaphoresis, No edema, No loss of appetite Skin: No skin lesions, No rash, No bruising Head: No headache, No light-headedness Eyes: No loss of vision, No pain, No diplopia ENT: No earache, No nasal drainage, No sore throat, No tinnitus Neck: No neck pain, No swelling, No thyromegaly, No stiffness, No mass noted Cardio Vascular: No chest pain, No palpitations, No PND, No orthopnea, No edema Pulmonary: No SOB, No cough, No sputum, No wheezing GI: No nausea, No vomiting, No diarrhea, No pain, No melena, No hematochezia, No constipation, No hematemesis G/U: No dysuria, No frequency, No hematuria Musculoskeletal: No bone or joint pain, No back pain, No muscle pain Endocrine: No polyuria, No polydipsia Psychiatric: No prior psych history, No depression, No anxiety, No suicidal ideation Hematopoietic: No bruising, No lymphadenopathy Allergic/Immuno: No urticaria, No angioedema Neurological: No syncope, No focal symptoms, No weakness, No paresthesia, No headache, No seizure, No dizziness, No confusion, No vertigo ED Past Medical History - Past Medical History Past Medical History: Other (PSYCH DISORDER HX OF ACHALASIA) Family Medical History - Family Member Mother History Unknown: Yes Ethnicity: Non- ED Physical Exam - Physical Examination General/Constitutional: Awake, Well-developed, well-nourished, Alert, No distress, GCS 15, Non-toxic appearing, Ambulatory Head: Atraumatic Eyes: Lids, conjuctiva normal, PERRL, EOMI Skin: Nl inspection, No rash, No skin lesions, No ecchymosis, Well hydrated, No lymphadenopathy ENMT: External ears, nose nl, Nasal exam nl, Lips, teeth, gums nl Neck: Nontender, Full ROM w/o pain, No JVD, No nuchal rigidity, No bruit, No mass, No stridor Respiratory: Nl effort/Exclusion, Clear to Auscultation, No Wheeze/Rhonchi/Rales Cardio Vascular: RRR, No murmur, gallop, rubs, NL S1 S2 GI: No tenderness/rebounding/guarding, No organomegaly, No hernia, Normal BS's, Nondistended, No mass/bruits, No McBurney tenderness : No CVA tenderness Extremities: No tenderness or effusion, Full ROM, normal strength in all extremities, No edema, Normal digits & nails Neuro/Psych: Alert/oriented, DTR's symmetric, Normal sensory exam, Normal motor strength, Judgement/insight normal, Mood normal, Normal gait, No focal deficits Misc: Normal back, No paraspinal tenderness ED Assessment - Assessment General Assessment: VOMITING ED Septic Shock - . Is Septic Shock (SBP<90, OR Lactate>4 mmol\L) present?: No ED Reassessment (Disposition) - Reassessment Reassessment:: VOMITING DIZZINESS ANXIETY Reassessment Condition:: Improved - Diagnosis Diagnosis:: ABOVE - Aftercare/Follow up Instructions Aftercare/Follow-Up Instructions:: Counseled pt regarding lab results/diagnosis & need follow up - Patient Disposition Discharge/Transfer:: Home Condition at Disposition:: Stable
[2018-03-05 21:59] LABS: BASOPHILE ABSOLUTE 0.2 Th/cumm (0-0.2); HEMATOCRIT 35.6 % (41.0-60); HEMOGLOBIN 11.9 gm/dL (12-16); LYMPHOCYTE ABSOLUTE 0.9 Th/cmm (1.5-3.0); MEAN CORPUSCULAR HEMOGLOBIN 27.8 pg (26.0-30.0); MEAN CORPUSCULAR HGB CONC 33.5 pg (28.0-36.0); MEAN PLATELET VOLUME 8.3 fl; MONOCYTE ABSOLUTE 0.7 Th/cmm (0.3-1.0); PLATELET COUNT 357 Th/cmm (150-400); RED BLOOD COUNT 4.29 Mil/cmm (4.30-5.70); RED CELL DISTRIBUTION WIDTH 17.4 % (11.5-20.0)
[2018-03-05 22:17] LABS: ALB/GLOB RATIO 1.1 (1.0-1.8); ALBUMIN 3.9 gm/dL (4.2-5.5); ALKALINE PHOSPHATASE 146 U/L (34-104); ANION GAP 14.7 (7.0-16.0); BILIRUBIN,TOTAL 1.1 mg/dL (0.3-1.0); BUN - UREA NITROGEN 13 mg/dL (7-25); CALCIUM SERUM 9.1 mg/dL (8.6-10.3); CARBON DIOXIDE 20.4 mEq/L (21.0-31.0); CHLORIDE 104 mEq/L (98-107); GFR AFRICAN-AMERICAN > 60.0 ml/min (>90); GFR NON AFRICAN-AMERICAN > 60.0 ml/min; GLUCOSE 125 mg/dL (70-105); POTASSIUM SERUM 3.1 mEq/L (3.5-5.1); SGOT 18 U/L (13-39); SGPT/ALT 15 U/L (7-52); SODIUM SERUM 136 mEq/L (136-145); TOTAL PROTEIN,SERUM 7.6 gm/dL (6.0-8.3)
[2018-03-05 22:35] LABS: WHITE BLOOD COUNT 19.8 Th/cmm (4.8-10.8)
[2018-03-05 23:06] LABS: NEUTROPHILS 90 % (40-80)
[2018-03-05 23:07] LABS: BAND NEUTROPHILE 0 % (0-10); BASOPHIL 0 % (0-3); EOSINOPHIL 1 % (0-5); LYMPHOCYTE 5 % (20-50); MONOCYTE 4 % (2-10)
[2018-03-05] MEDS ORDERED: cefTRIAXone 1 GM in Sodium Chloride 0.9% 50 ML IV ONE (23:17)
[2018-03-05] MEDS ORDERED: Sodium Chloride 0.9% 1,000 ML IV ONE (23:17)
[2018-03-05] MEDS ORDERED: Potassium Chloride 20 mEq ER Tab PO ONE ×2 (23:19→23:20)
[2018-03-06 00:49] LABS: URINE SOURCE CLEAN C
[2018-03-06 00:51] LABS: URINE BILIRUBIN NEGATIVE (NEGATIVE); URINE BLOOD SMALL (NEGATIVE); URINE GLUCOSE (UA) NEGATIVE (NEGATIVE); URINE KETONE NEGATIVE (NEGATIVE); URINE LEUKOCYTE ESTERASE NEGATIVE (NEGATIVE); URINE MICROSCOPIC INDICATED? YES; URINE NITRATE NEGATIVE (NEGATIVE); URINE PH 6.5 (4.6 - 8.0); URINE PROTEIN NEGATIVE (NEGATIVE); URINE UROBILINOGEN 0.2 E.U./dL (0.2 - 1.0)
[2018-03-06] MEDS ORDERED: D5-0.45NS 1,000 ML IV SCH (00:53)
[2018-03-06 01:01] LABS: URINE BACTERIA MODERATE /hpf (NONE SEEN); URINE CLARITY CLEAR (CLEAR); URINE COLOR YELLOW; URINE EPITHELIAL CELLS NONE SEEN /lpf (FEW); URINE RBC NONE SEEN /hpf (0-5); URINE WBC 0-2 /hpf (0-5)
[2018-03-06 01:04] LABS: AMPHETAMINE URINE NEGATIVE (NEGATIVE); BARBITURATES URINE NEGATIVE (NEGATIVE); BENZODIAZEPINES QUAL URINE NEGATIVE (NEGATIVE); CANNABINOID THC NEGATIVE (NEGATIVE); COCAINE METABOLITE QUAL URINE NEGATIVE (NEGATIVE); METHADONE URINE NEGATIVE (NEGATIVE); METHAMPHETAMINES QUAL URINE NEGATIVE (NEGATIVE); OPIATES (MORPHINE) QUAL. URINE NEGATIVE (NEGATIVE); PHENCYCLIDINE (PCP) URINE NEGATIVE (NEGATIVE); TRICYCLICS (TCA) QUAL. URINE NEGATIVE (NEGATIVE)
[2018-03-06 04:32] VITALS: BP 119/67
[2018-03-06 06:02] LABS: EOSINOPHILE ABSOLUTE 0.1 Th/cmm (0.1-0.4); HEMATOCRIT 33.8 % (41.0-60); HEMOGLOBIN 11.3 gm/dL (12-16); LYMPHOCYTE ABSOLUTE 2.4 Th/cmm (1.5-3.0); MEAN CORPUSCULAR HGB CONC 33.3 pg (28.0-36.0); NEUTROPHILE ABSOLUTE 17.9 Th/cmm (1.8-8.0); PLATELET COUNT 349 Th/cmm (150-400); RED BLOOD COUNT 4.03 Mil/cmm (4.30-5.70)
[2018-03-06 06:18] LABS: ANION GAP 10.5 (7.0-16.0); BUN - UREA NITROGEN 11 mg/dL (7-25); CARBON DIOXIDE 23.4 mEq/L (21.0-31.0); CHLORIDE 107 mEq/L (98-107); GFR AFRICAN-AMERICAN > 60.0 ml/min (>90); GFR NON AFRICAN-AMERICAN > 60.0 ml/min; GLUCOSE 114 mg/dL (70-105); MAGNESIUM 1.9 mg/dL (1.9-2.7); POTASSIUM SERUM 3.9 mEq/L (3.5-5.1); SODIUM SERUM 137 mEq/L (136-145)
[2018-03-06 06:40] LABS: WHITE BLOOD COUNT 22.4 Th/cmm (4.8-10.8)
[2018-03-06 06:57] LABS: BAND NEUTROPHILE 1 % (0-10); BASOPHIL 2 % (0-3); LYMPHOCYTE 14 % (20-50); MONOCYTE 6 % (2-10); NEUTROPHILS 77 % (40-80); PLATELET ESTIMATE ADEQUATE (NORMAL)
[2018-03-06] MEDS ORDERED: Ciprofloxacin 200mg Premix PB 200 MG/100 ML BAG IV SCH (09:00)
== END 2018-03-06 12:45 | disposition left against medical advice (07) | DRG 111 ==
LOC: ER 19:34 → MSI 23:45
PROVIDERS: ADMIT Internal Medicine; ATTEND Internal Medicine
DX: R42 Dizziness and giddiness (principal); F41.9 Anxiety disorder, unspecified; R11.10 Vomiting, unspecified; Z88.2 Allergy status to sulfonamides; Z88.8 Allergy status to other drugs, medicaments and biological substances
CPT/HCPCS: 36415-UA; 80048-TC; 80053-TC; 80307; 81001-TC; 83605; 83735-TC; 85007-TC; 85025-TC; 87086-90; J0696; J0744; J2405; Q0162

== ENCOUNTER 2018-11-25 16:14 | Emergency (ER) | payer MEDICAID ==
--- NOTE | 2018-11-25 16:22 | ED Physician Chart ---
ED Chief Complaint/HPI - Patient Information Date Seen:: 11/25/18 Time Seen:: 16:10 Chief Complaint:: trauma right small finger History of Present Illness:: 2 days ago patient slammed right small finger in a door. He complains of inability to completely extend the distal phalanx of the right small finger. Patient is right-hand dominant. Allergies:: Allergies Allergy/AdvReac Type Severity Reaction Status Date / Time chlorpromazine Allergy Verified 01/17/18 23:57 [From Thorazine] haloperidol [From Haldol] Allergy Verified 01/17/18 23:57 Sulfa (Sulfonamide Allergy Verified 01/17/18 23:57 Antibiotics) sulfamethoxazole Allergy Verified 01/17/18 23:57 [From Bactrim] trimethoprim [From Bactrim] Allergy Verified 01/17/18 23:57 Historian:: Patient Review:: Nurse's Note Reviewed ED Review of Systems - Review of Systems General/Constitutional: No fever, No chills Skin: No skin lesions Head: No headache Eyes: No loss of vision ENT: No earache Neck: No neck pain, No swelling Cardio Vascular: No chest pain, No palpitations Pulmonary: No SOB GI: No nausea, No vomiting, No diarrhea Musculoskeletal: Bone or joint pain Endocrine: No polyuria, No polydipsia Psychiatric: No prior psych history Hematopoietic: No bruising, No lymphadenopathy Allergic/Immuno: No urticaria Neurological: No syncope ED Past Medical History - Past Medical History Past Medical History: Other (achalasia) Family History: Cancer Social History: Non Smoker, No Alcohol Surgical History: other (achalasia) Psychiatricy History: None Medication: None Family Medical History - Family Member Mother History Unknown: Yes Ethnicity: Non- ED Physical Exam - Physical Examination General/Constitutional: Well-developed, well-nourished, No distress Head: Atraumatic Eyes: Lids, conjuctiva normal Skin: Nl inspection ENMT: External ears, nose nl Neck: No nuchal rigidity Respiratory: Nl effort/Exclusion Cardio Vascular: RRR GI: No tenderness/rebounding/guarding : No CVA tenderness Other Extremities comments:: Right small finger: About 10 of flexion of distal segment; unable to fully extend the distal segment Neuro/Psych: No focal deficits ED Labs/Radiology/EKG Results - Radiology Results Results: X-ray right hand showed metallic foreign body or old chip fracture between skin and dorsal surface of distal middle phalanx of the small finger ED Assessment - Assessment General Assessment: Stack splint applied right small finger patient instructed to leave it on for 8 weeks. ED Septic Shock - . Is Septic Shock (SBP<90, OR Lactate>4 mmol\L) present?: No ED Reassessment (Disposition) - Reassessment Reassessment Condition:: Unchanged - Diagnosis Diagnosis:: Extensor tendon rupture base of distal phalanx right small finger - Aftercare/Follow up Instructions Aftercare/Follow-Up Instructions:: Refer to Discharge Instructions - Patient Disposition Discharge/Transfer:: Home Condition at Disposition:: Stable, Unchanged
--- NOTE | 2018-11-26 10:03 | Diagnostic Imaging Report ---
Right hand (2 views) HISTORY: Pain, trauma No acute bony abnormalities. No fractures. There is a 2 mm calcific density noted adjacent the dorsal aspect of the head of the fifth middle phalanx. No donor site is seen. The appearance suggests a chronic etiology. Clinical correlation is needed. IMPRESSION: 1. No definite acute abnormalities. In the presence of recent trauma and persistent symptoms, a repeat radiograph in 5-7 days may be helpful for detection of a subtle or occult fracture.
== END 2018-11-25 17:30 | disposition home or self-care (01) ==
LOC: ER 16:14
DX: S56.417A Strain of extensor muscle, fascia and tendon of right little finger at forearm level, initial encounter (principal); Z88.1 Allergy status to other antibiotic agents; Z88.2 Allergy status to sulfonamides; Z88.5 Allergy status to narcotic agent; Z88.8 Allergy status to other drugs, medicaments and biological substances; W22.8XXA Striking against or struck by other objects, initial encounter; Y93.89 Activity, other specified; Y92.89 Other specified places as the place of occurrence of the external cause; Y99.8 Other external cause status
CPT/HCPCS: 73120-TC-RT; Z7502